=== PATIENT | male | born 1995 | race Two or more races ===

== ENCOUNTER 2018-08-25 16:39 | Emergency (ER) | payer OTHER ==
--- NOTE | 2018-08-25 18:20 | ED Physician Documentation ---
History of Present Illness - Stated complaint Stated Complaint: LT EYE PX - Chief complaint Chief Complaint: Heent - Additonal information Additional information: hx from pt 23 [employer] L eye redness and dc today no injury welding contacts etc Review of Systems Eyes: reports: Discharge, Irritation PD PAST MEDICAL HISTORY - Past Medical History Past Medical History: No - Past Surgical History Past Surgical History: No - Present Medications Home Medications: Ambulatory Orders Medication Instructions Recorded Confirmed Erythromycin Base [Erythromycin 1 applic OP Q4H #1 tube 08/25/18 Ophthalmic Ointment] - Allergies Allergies/Adverse Reactions: Allergies Allergy/AdvReac Type Severity Reaction Status Date / Time No Known Drug Allergies Allergy Verified 08/25/18 16:56 - Social History Does the pt smoke?: Yes Smoking Status: Current every day smoker Does the pt drink ETOH?: Yes Does the pt have substance abuse?: No - Immunizations Immunizations are current?: Yes PD ED PE NORMAL - HEENT HEENT: Other (L eye infected, some white mucoid dc, no periorbital erythema, no limbal flush, globes soft, no TA TTP) - Cardiac Cardiac: RRR - Respiratory Respiratory: No respiratory distress, Clear bilaterally Results - Vitals Vitals: Vital Signs - 24 hr 08/25/18 16:55 Temperature 37 C Heart Rate 68 Respiratory 15 Rate Blood Pressure 163/68 H O2 Saturation 98 Oxygen O2 Source Room air Departure - Departure Disposition: 01 Home, Self Care Clinical Impression: Conjunctivitis Qualifiers: Conjunctivitis type: acute Acute conjunctivitis type: unspecified Laterality: left Qualified Code(s): H10.32 - Unspecified acute conjunctivitis, left eye Condition: Good Instructions: ED Conjunctivitis Nonspecific Follow-Up: [facility] [Provider Group] (if not better after the weekend - return to the ER if worse) Prescriptions: Erythromycin Base [Erythromycin Ophthalmic Ointment] 1 applic OP Q4H #1 tube Comments: Apply the ointment to the inner lower lid every 4 hr while awake - blink several times and the ointment will warm up and absorb Cool compresses (keep a bowl of water with a wash cloth in the fridge) will help ease the discomfort Can be contagious so wash your hands carefully after touching your eyes to prevent spread
[2018-08-25 18:31] VITALS: BP 158/70
== END 2018-08-25 18:30 | disposition home or self-care (01) ==
LOC: ED 16:39
DX: H10.32 Unspecified acute conjunctivitis, left eye (principal); F17.200 Nicotine dependence, unspecified, uncomplicated
CPT/HCPCS: 99283